=== PATIENT | female | born 2000 | race Caucasian/White ===

== ENCOUNTER 2023-03-02 18:58 | Emergency (ER) | payer SELFPAY ==
[2023-03-02 19:32] LABS: Pregnancy Test - Urine (BHCG) Negative (Negative); Pregu Control Background? CLEAR/WHITE (CLR/WHITE); Pregu Control Bar Appear? YES (CONTROL BAR)
[2023-03-02 19:33] LABS: Bilirubin Negative (Negative); Blood, Urine Negative (Negative); CAUTI Indications for Culture Pelvic or flank pain; Clarity Clear (Clear); Glucose, Urine (Dipstick) Normal (Negative); Ketone, Urine Negative (Negative); Leukocyte 500 Leu/uL (Negative); Nitrite Negative (Negative); Protein, Urine (Dipstick) Negative (Neg-Trace); Urobilinogen Normal mg/dL (Less than 2); WBC/HPF Greater than 50 HPF (0-3); pH, Urine 5.5 (5.0-9.0)
[2023-03-02 19:39] LABS: Bacteria/HPF 1+ HPF (None Seen)
[2023-03-02 19:40] LABS: Urine Culture Reflex Yes Yes
[2023-03-02 22:57] LABS: Chlam.trachomatis by PCR,Urine Not Detected (NotDetected); GC N.gonorrhoeae PCR,UrineVOID Not Detected (NotDetected)
== END 2023-03-02 20:03 | disposition home or self-care (01) ==
LOC: ERS 18:58
DX: N76.0 Acute vaginitis (principal); N39.0 Urinary tract infection, site not specified; F17.210 Nicotine dependence, cigarettes, uncomplicated
CPT/HCPCS: 81001; 81025; 87086; 87480; 87491; 87510; 87591; 87660; 99284